=== PATIENT | male | born 1965 | race Two or more races ===

== ENCOUNTER 2022-08-24 19:44 | Emergency (ER) | payer SELFPAY ==
[2022-08-24 20:04] VITALS: BMI 40.3
[2022-08-24 21:27] LABS: EOS % 0.2 % (0-4.5); HEMATOCRIT 34.1 % (35.4-49); HEMOGLOBIN 11.4 GM/dL (11.7-16.9); LYMPH % 29.8 % (8-40); MCH 26.6 pg (25.7-33.7); MCHC 33.5 g/dl (32.0-35.9); MEAN CELL VOLUME 79.3 fl (80-96); MONO % 13.3 % (3.8-10.2); NEUT % 55.7 % (42.8-82.8); PLATELET COUNT 57 10^3/uL (134-434); RBC 4.31 M/mm3 (4.00-5.60); RDW 19.7 % (11.9-15.9); WHITE BLOOD COUNT 3.9 K/mm3 (4.0-10.0)
[2022-08-24 21:28] LABS: VENOUS BASE EXCESS 0.4 mmol/L (-2-2); VENOUS PCO2 37.6 mmHg (38-52); VENOUS PH 7.432 (7.310-7.410)
[2022-08-24 21:51] LABS: INR 1.44 (0.83-1.09); POTASSIUM 3.6 mmol/L (3.5-5.1); PROTHROMBIN TIME (PATIENT) 16.6 SEC (9.7-13.0); SODIUM 141 mmol/L (136-145)
[2022-08-24 21:52] LABS: CHLORIDE 110 mmol/L (98-107)
[2022-08-24 21:53] LABS: ACTIVATED PTT 35.2 SECONDS (25.2-36.5)
[2022-08-24 21:54] LABS: ALBUMIN 2.5 g/dl (3.4-5.0); ANION GAP 6 MMOL/L (8-16); BLOOD UREA NITROGEN 8.8 mg/dL (7-18); CO2 25 mmol/L (21-32); GLUCOSE,RANDOM 84 mg/dL (74-106)
[2022-08-24 21:57] LABS: CREATININE 0.6 mg/dL (0.55-1.3); SGPT/ALT 67 U/L (13-61)
[2022-08-24 21:58] LABS: SGOT/AST 175 U/L (15-37)
[2022-08-24 21:59] LABS: BILIRUBIN,TOTAL 2.8 mg/dL (0.2-1); TOT PROT 7.6 g/dl (6.4-8.2)
[2022-08-24 22:00] LABS: ALK PHOS 253 U/L (45-117)
[2022-08-24 22:02] LABS: N-TERMINAL BNP 70.2 pg/ml (5-125)
[2022-08-25 02:51] LABS: PHENCYCLIDINE,URINE NEGATIVE (NEGATIVE)
[2022-08-25 02:52] LABS: COCAINE, UR NEGATIVE (NEGATIVE); OPIATES, URI NEGATIVE (NEGATIVE); URINE AMPHETAMINES NEGATIVE (NEGATIVE); URINE BARBITURATES NEGATIVE (NEGATIVE)
[2022-08-25 02:55] LABS: METHADONE, UR NEGATIVE (NEGATIVE); URINE BENZODIAZEPINES POSITIVE (NEGATIVE)
[2022-08-25 08:29] VITALS: PULSE 83
[2022-08-25 10:46] VITALS: BP 125/71; RESP 16; TEMP 98.2
== END 2022-08-25 10:44 | disposition home or self-care (01) ==
LOC: JER 19:44
DX: M79.604 Pain in right leg (principal); R60.0 Localized edema; R10.11 Right upper quadrant pain; D64.9 Anemia, unspecified; D69.6 Thrombocytopenia, unspecified; K70.40 Alcoholic hepatic failure without coma; F10.288 Alcohol dependence with other alcohol-induced disorder; Y90.0 Blood alcohol level of less than 20 mg/100 ml; Z20.822 Contact with and (suspected) exposure to COVID-19
CPT/HCPCS: 36415; 70450-TC; 76705-TC; 80053; 80307; 82803; 83880; 84436; 84443; 85025; 85610; 85730; 86850; 86900; 86901; 99285-25; C9803-CS; U0003; U0005